=== PATIENT | male | born 1950 | race Caucasian/White ===

== ENCOUNTER → 2016-09-08 | Outpatient (CLI) | payer OTHER ==
--- NOTE | 2016-09-08 09:27 | RAD ---
EXAM DESCRIPTION: XR KNEE 4 OR MORE VIEWS CLINICAL HISTORY: 65 y/o ,M, PAIN IN LEFT KNEE COMPARISON: None. IMPRESSION: Moderate joint effusion. Mild joint space loss of the medial and lateral compartments of the left knee. No definitive fracture on today's radiographs. No osseous lesion noted. Electronically signed by: Fco Ogden MD 09/08/2016 09:25
--- NOTE | 2016-09-08 09:28 | RAD ---
EXAM DESCRIPTION: Pelvis series. CLINICAL HISTORY: Pelvic pain. COMPARISON: None. TECHNIQUE: One view was submitted for evaluation. FINDINGS: Bilateral joint space loss seen within the hips. Degenerative change of the pubic symphysis noted. Degenerative change the left sacroiliac joint. No fracture, dislocation, or radiopaque foreign body is seen. Pelvic ring appears intact. Soft tissues are unremarkable. IMPRESSION: Symmetrical joint space loss noted within bilateral hips along with degenerative change of the left sacroiliac joint and pubic symphysis. Electronically signed by: Fco Ogden MD 09/08/2016 09:26
== END ==
LOC: RAD 07:59
PROVIDERS: ATTEND Orthopaedic Surgery
DX: M25.562 Pain in left knee (principal); M25.862 Other specified joint disorders, left knee; M25.462 Effusion, left knee; M25.552 Pain in left hip; M25.852 Other specified joint disorders, left hip; M25.851 Other specified joint disorders, right hip

== ENCOUNTER → 2017-04-02 | Outpatient (CLI) | payer OTHER | END | disposition home or self-care (01) | LOC: GMAB 13:17 | PROVIDERS: ATTEND Family Medicine | DX: M79.1 Myalgia (principal) ==

== ENCOUNTER → 2017-08-09 | Outpatient (CLI) | payer OTHER ==
--- NOTE | 2017-08-10 09:01 | MRI ---
Study: MRI of the Left Elbow. Indication: TEAR OF MENISCUS Technique: Multiplanar, multi sequence MRI of the left elbow was obtained without intravenous contrast. Comparison: None. Findings: Pronounced mucoid degeneration and intrasubstance cystic change ACL without acute tear. Mild degeneration PCL. Both the MCL and FCL are slightly thickened and lax with mild increased internal PD signal. In addition, there is mild thickening of the distal IT band. These findings can be seen in the setting of the osteoarthritic knee. No acute tear defect of the medial or lateral collateral structures. Complex multidirectional tearing posterior horn and body medial meniscus with 5 mm extrusion of the body. Extensive grade 4 chondral loss throughout the majority medial compartment with cortical remodeling and multifocal subchondral marrow edema/cystic change. The changes are most pronounced in the medial tibial plateau with the edema/cystic change extending into the central tibial metaphysis. Mild degenerative signal lateral meniscus without tear. There is grade 2 chondral thinning throughout the lateral compartment but with subtle grade 4 chondrosis and subchondral marrow change posteromedial weightbearing margin of the lateral tibial plateau. Patellofemoral extensor mechanism intact. Patella normally located. Grade 2-3 chondral surface irregularity of the patellar apex and more pronounced grade 4 chondral loss and subchondral marrow change of the inferior margin lateral femoral trochlea. Moderate size knee effusion with scattered synovitis debris. Small multiloculated Gan cyst. No acute fracture. Impression: Pronounced mucoid degeneration ACL with less pronounced degeneration PCL. Changes of the capsular structures which can be seen in the setting osteoarthritis. Maceration medial meniscus as above. Degenerative signal changes lateral meniscus without tear. Tricompartmental chondrosis most pronounced at the medial compartment where there is extensive grade 4 chondral loss and subchondral marrow changes. Note, the cystic change and marrow edema of the medial tibial plateau extends into the medial tibial metaphysis without well-defined mass lesion. Moderate size knee effusion. Electronically signed by: Tony Bridges MD 08/10/2017 9:00 AM [employer]VERTISING COLUMNIST
== END | disposition home or self-care (01) ==
LOC: MRI 11:18
PROVIDERS: ATTEND Orthopaedic Surgery
DX: S83.207D Unspecified tear of unspecified meniscus, current injury, left knee, subsequent encounter (principal)

== ENCOUNTER → 2018-04-14 | Outpatient (CLI) | payer MEDICARE | LOC: GMAE 12:25 | PROVIDERS: ATTEND Family Medicine | DX: M79.1 Myalgia (principal); E29.1 Testicular hypofunction; I10 Essential (primary) hypertension; Z12.5 Encounter for screening for malignant neoplasm of prostate; Z11.59 Encounter for screening for other viral diseases | CPT/HCPCS: 84403; 84443; 86140; G0103 ==

== ENCOUNTER → 2019-01-24 | Outpatient (CLI) | payer MEDICARE ==
--- NOTE | 2019-01-24 17:03 | MRI ---
EXAM DESCRIPTION: Lumbar Spine w/o Contrast CLINICAL HISTORY: RADICULOPATHY COMPARISON: None. TECHNIQUE: Multiplanar, multisequence MRI of the lumbar spine was performed without contrast. FINDINGS: Lumbar vertebral body heights are maintained. A 2 mm anterolisthesis of L5 on S1 is seen. No pars defect. Mild Modic type I endplate signal changes anteriorly at T12-L1 is seen. Increased lumbar lordosis is noted. Desiccation of the disc spaces throughout the lumbar spine with anterior disc bulging and hypertrophic marginal endplate osteophytes at every level. Patchy Modic type II endplate signal changes are seen at every level. Marrow edema is seen in the right L5 and to a lesser degree L4 pedicle extending to the periarticular osseous structures of the right L4-5 facet joint. Increased T2 signal in the soft tissue around the right facet joint is seen. Mild marrow edema in the left L4-5 facet joint and pedicles is also seen. Conus medullaris terminates at T12-L1 and is unremarkable. Visualized intra-abdominal and retroperitoneal structures show no acute findings. The right kidney is not identified. T10-L1: Mild to moderate disc space narrowing with mild posterior disc osteophytic ridging. No spinal canal stenosis. Moderate right greater than left foraminal encroachment T11-12 is seen. L1-2 Mild disc space narrowing. Mild posterior disc osteophytic ridging. Mild bilateral foraminal encroachment is seen. Probable atypical osseous hemangioma in the left posterior element of L1 measuring 8 mm on sagittal image 4. L2-3 Mild diffuse disc space narrowing and 2 to 3 mm broad-based disc bulge with mild facet hypertrophic and degenerative changes results in mild spinal canal stenosis. Moderate right and moderate to severe left foraminal encroachment contacting the exiting L2 nerve root in the neural foramen left greater than right is seen. L3-4 Moderate diffuse disc space narrowing. Mild facet hypertrophic and degenerative changes. No spinal canal stenosis. Moderate right greater than left foraminal encroachment is seen with right far lateral disc osteophytic ridging encroaching on the extraforaminal right L3 nerve root. L4-5 Moderate diffuse disc space narrowing and to 3 mm broad-based annular disc bulge mildly flattens ventral surface of the thecal sac. Severe left and moderate right facet hypertrophic and degenerative changes are seen. No spinal canal stenosis. Severe left and moderate right foraminal encroachment is seen with loss of normal fat signal from around the exiting left L4 nerve root. L5-S1 Moderate to severe disc space narrowing and vacuum disc. Moderate bilateral facet hypertrophic and degenerative changes are seen. Mild spinal canal stenosis. Severe left greater than right foraminal encroachment impinging on the exiting L5 nerve roots. Uncovering of the disc from anterolisthesis. IMPRESSION: Moderate to severe disc degenerative changes and [id number] facet arthropathy of the lumbar spine. Degenerative grade 1 anterolisthesis at L5-S1 with severe left greater than right foraminal encroachment. Severe left and moderate right foraminal encroachment at L4-5 is seen. Stress reactive marrow edema versus acute inflammation of the pedicle to facet joints is seen right greater than left at L4-5 including soft tissue inflammation surrounding right facet. Electronically signed by: Luciano García MD 01/24/2019 5:01 PM CDT
== END ==
LOC: MRI 10:42
PROVIDERS: ATTEND Family Medicine
DX: M51.16 Intervertebral disc disorders with radiculopathy, lumbar region (principal); M47.26 Other spondylosis with radiculopathy, lumbar region; M43.17 Spondylolisthesis, lumbosacral region

== ENCOUNTER → 2019-11-13 | Outpatient (CLI) | payer MEDICARE | LOC: GMAE 10:23 | PROVIDERS: ATTEND Family Medicine | DX: Z12.5 Encounter for screening for malignant neoplasm of prostate (principal); I10 Essential (primary) hypertension; E78.2 Mixed hyperlipidemia | CPT/HCPCS: 84443; G0103 ==

== ENCOUNTER → 2019-12-21 | Outpatient (CLI) | payer MEDICARE | LOC: LAB.O 15:04 | PROVIDERS: ATTEND Orthopaedic Surgery | DX: Z01.818 Encounter for other preprocedural examination (principal) ==

== ENCOUNTER 2020-02-06 05:32 | Inpatient (IN) | payer MEDICARE ==
[2020-02-06] MEDS ORDERED: SODIUM CHLORIDE 0.9% 100ML 100 ML IVPB ONE (06:40)
[2020-02-06] MEDS ORDERED: ceFAZolin SODIUM 1 GM VIAL ONE (06:40)
[2020-02-06] MEDS ORDERED: LACTATED RINGERS 1,000 ML ONE ×2 (06:40→11:10)
[2020-02-06] MEDS ORDERED: SODIUM CHLORIDE 0.9% 250ML 250 ML ONE (06:40)
[2020-02-06] MEDS ORDERED: SODIUM CHL 0.9% 100ML MINI-BAG 100 ML IVPB ONE (06:40)
[2020-02-06] MEDS ORDERED: VANCOMYCIN HCL INJ 1,000 MG VIAL IVPB ONE (06:41)
[2020-02-06] MEDS ORDERED: TRANEXAMIC ACID 1,000 MG/10 ML VIAL ONE (06:41)
[2020-02-06] MEDS ORDERED: HYDROmorphone HCL INJ 2 MG/ML VIAL ONE (07:13)
[2020-02-06] MEDS ORDERED: MIDAZOLAM INJ 5 MG/5 ML VIAL ONE (07:13)
[2020-02-06] MEDS ORDERED: KETAMINE HCL 100 MG/ML VIAL ONE (07:13)
[2020-02-06] MEDS ORDERED: ACETAMINOPHEN IV 1000MG 100 ML ONE (07:13)
[2020-02-06] MEDS ORDERED: FAMOTIDINE INJ 10 MG/ML VIAL IV ONE (07:14)
[2020-02-06] MEDS: LACTATED RINGERS 1,000 ML IVS ONE ×2 (07:45→11:15)
[2020-02-06] MEDS: ceFAZolin SODIUM 1 GM VIAL ONE ×3 (08:43→10:05)
[2020-02-06] MEDS: BUPIVACAINE 0.5% 30 ML VIAL INJ ONE ×2 (08:43→09:55)
[2020-02-06] MEDS: BUPIVACAINE LIPOSOME 13.3 MG/ML VIAL INJ ONE ×2 (08:44→09:55)
[2020-02-06] MEDS: VANCOMYCIN HCL INJ 1,000 MG VIAL IVPB ONE ×2 (08:44→10:05)
[2020-02-06] MEDS ORDERED: DEXAMETHASONE INJ 10 MG/ML VIAL IV ONE (10:00)
[2020-02-06] MEDS ORDERED: EPINEPHrine HCL AMP 1 MG/ML AMP IVPB ONE (10:00)
[2020-02-06] MEDS ORDERED: SODIUM CHLORIDE 0.9% 50 ML VIAL INJ ONE (10:00)
[2020-02-06] MEDS ORDERED: ePHEDrine SULF 50 MG/ML IV ONE (10:00)
[2020-02-06] MEDS ORDERED: PROPOFOL 200 MG/20 ML VIAL IV ONE (10:00)
[2020-02-06] MEDS ORDERED: MAGNESIUM SULFATE INJ 1 GM/2 ML VIAL IVPB ONE (10:00)
[2020-02-06] MEDS ORDERED: LIDOCAINE 1% 10 ML VIAL INJ ONE (10:00)
[2020-02-06] MEDS ORDERED: LACTATED RINGERS 50 ML IVS ONE (10:34)
[2020-02-06] MEDS ORDERED: traMADol HCL 50 MG TAB PO PRN (11:00)
[2020-02-06] MEDS ORDERED: HYDROcodone 10MG/APAP 325MG 1 EA TAB PO PRN (11:00)
[2020-02-06] MEDS ORDERED: IV SET AND CAP CHANGE INJ INJ SCH (11:00)
[2020-02-06] MEDS ORDERED: TEMAZEPAM 15 MG CAP PO PRN (11:00)
[2020-02-06] MEDS ORDERED: ACETAMINOPHEN 500 MG TAB PO PRN (11:00)
[2020-02-06] MEDS ORDERED: MORPHINE SULFATE INJ 10 MG/ML VIAL IV PRN (11:00)
[2020-02-06] MEDS ORDERED: NALOXONE HCL INJ 0.4 MG/ML VIAL IV PRN (11:00)
[2020-02-06] MEDS ORDERED: BISACODYL SUPPOSITORY 10 MG PR PRN (11:00)
[2020-02-06] MEDS ORDERED: ZOLPIDEM TARTRATE 5 MG TAB PO PRN (11:00)
[2020-02-06] MEDS ORDERED: DEX 5% W/NACL 0.45% 1000ML 1,000 ML IVS PRN (11:00)
[2020-02-06] MEDS ORDERED: ONDANSETRON INJ 4 MG/2 ML VIAL IV PRN (11:00)
[2020-02-06] MEDS ORDERED: ACETAMINOPHEN 325 MG TAB PO PRN (11:00)
[2020-02-06] MEDS ORDERED: CYCLOBENZAPRINE HCL 10 MG TAB PO PRN (11:00)
[2020-02-06] MEDS ORDERED: SODIUM CHLORIDE 0.9% (FLUSH) 10 ML SYG IV PRN (11:00)
[2020-02-06] MEDS ORDERED: MAGNESIUM HYDROXIDE 30 ML UD PO PRN (11:00)
[2020-02-06] MEDS ORDERED: BENZOCAINE-MENTH LOZ (CEPACOL) 1 EA LOZ MT PRN (11:00)
[2020-02-06] MEDS ORDERED: MORPHINE PCA 1 MG/ML 100 ML BAG IVPB SCH (11:00)
[2020-02-06] MEDS ORDERED: MORPHINE SULFATE INJ 10 MG/ML VIAL IM PRN (11:00)
[2020-02-06] MEDS ORDERED: TRANEXAMIC ACID INJ 1,000 MG in SODIUM CHLORIDE 0.9% 100ML 100 ML IVPB ONE (11:00)
[2020-02-06] MEDS ORDERED: PROMETHAZINE HCL INJ 25 MG in SODIUM CHLORIDE 0.9% 50ML 50 ML IVPB PRN (11:00)
[2020-02-06] MEDS ORDERED: ALUMINUM & MAGNESIUM HYDROXIDE 30 ML UD PO PRN (11:00)
[2020-02-06] MEDS ORDERED: PROMETHAZINE HCL INJ 12.5 MG in SODIUM CHLORIDE 0.9% 50ML 50 ML IVPB PRN (11:00)
[2020-02-06] MEDS ORDERED: CADD ADMIN SET 1 EA PKG INJ ONE (11:14)
[2020-02-06] MEDS ORDERED: MORPHINE PCA 1 MG/ML 100 ML BAG IVPB ONE (11:20)
[2020-02-06] MEDS ORDERED: [UNRECOGNIZED DRUG - OTHER] PO PRN (12:41)
[2020-02-06] MEDS ORDERED: hydrOXYzine HCl 25 MG TAB PO PRN (13:03)
[2020-02-06] MEDS: ceFAZolin SODIUM 2 GM in SODIUM CHLORIDE 0.9% 100ML 100 ML IVPB SCH ×2 (15:25→23:47)
[2020-02-06] MEDS: CELECOXIB 100 MG CAP PO SCH (16:49)
--- NOTE | 2020-02-06 17:15 | CONS ---
SUPERVISING PHYSICIAN: Juan Diego Barth MD REASON FOR CONSULTATION: Medical management. HISTORY OF PRESENT ILLNESS: This is a 69-year-old male patient who had a long history of osteoarthritis of the left knee. Today, he underwent left total knee arthroplasty with no intraoperative complications. He returns to the Medical/Surgical Unit in stable condition. He is not complaining of any pain right now, but he is still very drowsy from surgery. PAST MEDICAL HISTORY: 1. Hypertension. 2. Obstructive sleep apnea. 3. Rheumatoid arthritis. 4. Hyperlipidemia. PAST SURGICAL HISTORY: 1. Appendectomy. 2. Nephrectomy. 3. Eye surgery. 4. L4-L5 back surgery. MEDICATIONS: 1. Tylenol Arthritis 650 mg p.o. b.i.d. 2. Vitamin C 500 p.o. daily. 3. Vitamin B Complex with biotin and folic acid, 1 tablet daily. 4. Vitamin D 1000 units p.o. daily. 5. Folic acid 1 mg p.o. daily. 6. Leflunomide 20 mg p.o. daily. 7. Lisinopril/HCTZ 20/25 mg p.o. daily. 8. Actemra 800 mg IV monthly. ALLERGIES: NO KNOWN DRUG ALLERGIES. FAMILY HISTORY: His father had coronary artery bypass graft and at age 80 with Alzheimer's. SOCIAL HISTORY: The patient quit smoking in 2016. He vaped for 3 years, but quit vaping in April of 2019. He does use smokeless tobacco. No significant alcohol or drug use. He is and has 3 children. REVIEW OF SYSTEMS: Cannot be fully completed due to the patient being drowsy. He does not have any complaints at this time. PHYSICAL EXAMINATION: VITAL SIGNS: Blood pressure 109/67, heart rate 62, respiratory rate 14, temperature 97.9, oxygen saturation 93%. GENERAL: Mr. Jiang is a 69-year-old male patient who is in no active distress currently. NEUROLOGIC: The patient is a little drowsy, but awakens and follows commands. LUNGS: Clear to auscultation bilaterally. CARDIOVASCULAR: Regular rate and rhythm. Normal S1, S2. ABDOMEN: Soft. Positive bowel sounds. GENITOURINARY: Deferred. EXTREMITIES: Lower extremities with no edema. Pulses 2+. Capillary refill is less than 2 seconds. Left leg is wrapped with an Aristides with an ice pack in place. ASSESSMENT: 1. Left knee osteoarthritis status post left total knee arthroplasty. 2. History of hypertension. 3. History of obstructive sleep apnea. 4. Hyperlipidemia. 5. History of rheumatoid arthritis. PLAN: We will restart his home medications and monitor his progress with physical therapy and pain control while he is on the Medical/Surgical Unit. Anticoagulation will start 12 hours after his surgery with Lovenox q.12h. Pain medications have been ordered as well. I will recheck his hemoglobin tomorrow and get a baseline chemistry as well. #[id number] [facility]
[2020-02-06] MEDS: VANCOMYCIN HCL INJ 1,000 MG in SODIUM CHLORIDE 0.9% 250ML 250 ML IVPB SCH (18:01)
[2020-02-06] MEDS: DOCUSATE CALCIUM 240 MG CAP PO SCH (22:14)
[2020-02-06] MEDS: ENOXAPARIN SODIUM 30 MG/0.3 ML SYG SUBCU SCH (23:47)
[2020-02-07] MEDS: VANCOMYCIN HCL INJ 1,000 MG in SODIUM CHLORIDE 0.9% 250ML 250 ML IVPB SCH (06:12)
[2020-02-07] MEDS ORDERED: diphenhydrAMINE HCL 50 MG/ML VIAL ONE (08:18)
[2020-02-07] MEDS ORDERED: HYDROmorphone HCL INJ 2 MG/ML VIAL IV PRN (08:22)
[2020-02-07] MEDS ORDERED: diphenhydrAMINE HCL 50 MG/ML VIAL IV PRN (08:53)
[2020-02-07] MEDS: LISINOPRIL 10 MG TAB PO SCH (08:55)
[2020-02-07] MEDS: CHOLECALCIFEROL 2,000 IU TAB PO SCH (08:55)
[2020-02-07] MEDS: FOLIC ACID 1 MG TAB PO SCH (08:55)
[2020-02-07] MEDS: CELECOXIB 100 MG CAP PO SCH ×2 (08:55→19:31)
[2020-02-07] MEDS: HYDROcodone 5MG/APAP 325MG 1 EA TAB PO PRN ×2 (08:56→21:47)
[2020-02-07] MEDS: hydroCHLOROthiazide 25 MG TAB PO SCH (08:57)
[2020-02-07] MEDS: B COMPLEX 1 EA TAB PO SCH (08:57)
[2020-02-07] MEDS: MAGNESIUM OXIDE 400 MG TAB PO SCH (08:59)
[2020-02-07] MEDS: ASCORBIC ACID 500 MG TAB PO SCH (08:59)
[2020-02-07] MEDS: ceFAZolin SODIUM 2 GM in SODIUM CHLORIDE 0.9% 100ML 100 ML IVPB SCH (09:00)
[2020-02-07] MEDS ORDERED: ceFAZolin SODIUM 1 GM VIAL ONE (10:41)
[2020-02-07] MEDS ORDERED: SODIUM CHLORIDE 0.9% 100ML 100 ML IVPB ONE (10:41)
--- NOTE | 2020-02-07 11:21 | PN ---
SUPERVISING PHYSICIAN: Juan Diego Barth MD DATE: 02/07/20 SUBJECTIVE: The patient does not complain of any significant pain. He is walking in the hallways with physical therapy. Physical Therapy actually reports that he can probably go home with outpatient rehab tomorrow. OBJECTIVE: VITAL SIGNS: Blood pressure 115/58, heart rate 68, respiratory rate 16, temperature 98.4, oxygen saturation 97%. GENERAL: Mr. Jiang is a 69-year-old male patient NEUROLOGIC: Alert and oriented. LUNGS: Clear to auscultation bilaterally. CARDIOVASCULAR: Regular rate and rhythm. Normal S1, S2. ABDOMEN: Soft. Positive bowel sounds. EXTREMITIES: Left lower extremity with knee wrapped in an Aristides. Peripheral pulses 2+. Capillary refill is less than 2 seconds. LABORATORY: White count 5.5, hemoglobin 10.6, platelet count 114. Chemistry is pretty much unremarkable. ASSESSMENT: 1. Left knee osteoarthritis status post left total knee arthroplasty, postoperative day #1. 2. History of hypertension. 3. History of obstructive sleep apnea. 4. History of hyperlipidemia. 5. History of rheumatoid arthritis. PLAN: Continue physical therapy and pain control measures. If he indeed does go home tomorrow, he will need to be placed on p.o. anticoagulation and I will relay that to the oncoming hospitalist tomorrow. #[id number] [facility]
[2020-02-07] MEDS: ENOXAPARIN SODIUM 30 MG/0.3 ML SYG SUBCU SCH ×2 (11:29→22:53)
[2020-02-07] MEDS: LEFLUNOMIDE 20 MG PO SCH (11:31)
--- NOTE | 2020-02-07 13:09 | RAD ---
EXAM DESCRIPTION: Knee,Left 1 or 2 Views CLINICAL HISTORY: 69 years Male, TKA TECHNIQUE: 2 views of the left knee were performed. COMPARISON: 10/12/2019 FINDINGS: The visualized bones appear well mineralized. Intact left total knee arthroplasty with expected postsurgical changes in the surrounding soft tissues. IMPRESSION: Intact left total knee arthroplasty with expected postsurgical changes in the surrounding soft tissues. Electronically signed by: Quiana Razo MD 02/07/2020 1:07 PM CDT
[2020-02-07] MEDS: DOCUSATE CALCIUM 240 MG CAP PO SCH (21:08)
[2020-02-07] MEDS ORDERED: amLODIPine BESYLATE 5 MG TAB PO ONE (22:47)
[2020-02-08] MEDS: CELECOXIB 100 MG CAP PO SCH (07:37)
[2020-02-08 07:52] VITALS: O2SAT 98
--- NOTE | 2020-02-08 08:24 | OP ---
DATE OF PROCEDURE: 02/06/20 PREOPERATIVE DIAGNOSIS: 1. Left knee osteoarthritis. POSTOPERATIVE DIAGNOSIS: 1. Left knee osteoarthritis. PROCEDURE: 1. Total knee arthroplasty. SURGEON: Phil Arzate MD. FOOD SERVER: Mukund Heard CST, SA-C. ANESTHESIA: General anesthesia. COMPLICATIONS: None. FINDINGS: Severe arthritis. INDICATION: Mr. Jiang has a history of severe pain associated with arthritis of the knee. He has limitations in his activity secondary to that. Because of his ongoing discomfort and activity limitations, he has requested operative intervention. After discussing the risks, benefits and alternatives to that, the patient has given informed consent for total knee arthroplasty. PROCEDURE: The patient was brought to the Operating Room and placed in supine position. General anesthesia was induced and the patient's leg was sterilely prepped and draped. Following prepping and draping, the distal femur was exposed and using an intramedullary guide, the distal femoral cut was made. The appropriate sized cutting block was measured, pinned into place, and the anterior, posterior, and chamfer cuts were made. The ACL was transected and the tibia was subluxed. Both the medial and lateral menisci were removed. An intramedullary guide was used to make the proximal tibial cut. The appropriate sized base plate was placed and a trial polyethylene was placed. The trial femur was placed, the knee was reduced, and the knee was taken through a range of motion. The knee was stable in anterior, posterior, varus and valgus stress. The patella tracked anatomically without evidence of subluxation or dislocation. After trialing, the trial components were removed and the bony surfaces were thoroughly irrigated with saline. Following irrigation, the surfaces were dried and the final components were cemented into place. The excess cement was removed and the remaining cement was allowed to cure. The knee was again taken through a range of motion to confirm stability. The wound was then irrigated with saline and closure was performed using PDS to approximate the arthrotomy followed by closure of the subcutaneous tissues with a combination of running and interrupted Monocryl sutures. Sterile dressing was placed. The patient was awoken from anesthesia and taken to Recovery. COMPONENTS: Maria G Triathlon knee, size 4 femur, size 4 tibia, 11 mm insert. POSTOPERATIVE PLAN: The patient will be weight-bearing as tolerated on postoperative day 1. #[id number] [facility]
--- NOTE | 2020-02-08 08:25 | PN ---
DATE: 02/07/20 SUBJECTIVE: Mr. Jiang is doing well and has good pain control. OBJECTIVE: Afebrile . Vital signs stable. Dressing is clean, dry and intact. ASSESSMENT: Status post total knee arthroplasty. PLAN: The plan is to begin weightbearing as tolerated today. #[id number] [facility]
--- NOTE | 2020-02-08 08:26 | PN ---
DATE: 02/08/20 SUBJECTIVE: Mr. Jiang is doing very well. OBJECTIVE: Afebrile . Vital signs stable. The wound is clean. There are no signs or symptoms of infection. ASSESSMENT: Status post total knee arthroplasty. PLAN: The plan is for discharge. He will continue with his weightbearing as tolerated today. #[id number] [facility]
[2020-02-08] MEDS ORDERED: SODIUM CHLORIDE 0.9% (FLUSH) 10 ML SYG IV SCH (09:00)
[2020-02-08] MEDS: B COMPLEX 1 EA TAB PO SCH (09:32)
[2020-02-08] MEDS: MAGNESIUM OXIDE 400 MG TAB PO SCH (09:32)
[2020-02-08] MEDS: hydroCHLOROthiazide 25 MG TAB PO SCH (09:32)
[2020-02-08] MEDS: CHOLECALCIFEROL 2,000 IU TAB PO SCH (09:32)
[2020-02-08] MEDS: ASCORBIC ACID 500 MG TAB PO SCH (09:32)
[2020-02-08] MEDS: LISINOPRIL 10 MG TAB PO SCH (09:32)
[2020-02-08] MEDS: FOLIC ACID 1 MG TAB PO SCH (09:32)
[2020-02-08] MEDS: HYDROcodone 5MG/APAP 325MG 1 EA TAB PO PRN (09:32)
[2020-02-08] MEDS: LEFLUNOMIDE 20 MG PO SCH (09:33)
[2020-02-08 10:45] VITALS: BP 169/77; TEMP 97.9
[2020-02-09] MEDS ORDERED: BISACODYL SUPPOSITORY 10 MG PR ONE (21:00)
[2020-02-09] MEDS ORDERED: MAGNESIUM HYDROXIDE 30 ML UD PO ONE (21:00)
--- NOTE | 2020-02-27 13:08 | DS ---
SUPERVISING PHYSICIAN: Juan Diego Barth MD DISCHARGE DIAGNOSIS: 1. Left knee osteoarthritis status post left total knee arthroplasty, postoperative day #2. 2. Hypertension. 3. Obstructive sleep apnea. 4. Hyperlipidemia. 5. Rheumatoid arthritis. HISTORY OF PRESENT ILLNESS: This is a 69-year-old male patient who has history of osteoarthritis of the left knee. He was admitted to the hospital on the day of his surgery and as he had requested Dr. Phil Arzate, orthopedic surgeon, for operative intervention. He had no problems intraoperatively and was admitted to the Medical/Surgical Floor in stable condition. HOSPITAL COURSE: His home medications were restarted and his physical therapy was also started with pain control. His labs remained stable. There were no complications with his physical therapy. He will be discharged home today with outpatient physical therapy. LABORATORY: Hemoglobin 10.6, hematocrit 32.8. Electrolytes were basically within normal limits. Urinalysis was unremarkable. UDS on admission was negative. DISCHARGE PLAN: The patient will be discharged home in stable condition. He is to resume his previous diet and his activity will be as per physical therapy. He has a followup appointment with Dr. Arzate and he is to follow Dr. Arzate's postoperative instructions. In addition to his routine medications, he will also be on Xarelto for a total of 12 days of anticoagulation. He is to return to the hospital or followup Dr. Arzate for any problems or complications. MEDICATIONS: 1. Lisinopril/hydrochlorothiazide. 2. Leflunomide. 3. Folic acid. 4. B-complex vitamins. 5. Vitamin D. 6. Vitamin C. 7. Actemra. 8. Xarelto. #[id number] [facility]
== END 2020-02-08 11:45 | disposition home or self-care (01) | DRG 470 ==
LOC: AMB 05:32 → MS 11:25
PROVIDERS: ADMIT Orthopaedic Surgery; ATTEND Nurse Practitioner Acute Care
PROC: 0SRD0J9 Replacement of Left Knee Joint with Synthetic Substitute, Cemented, Open Approach (ICD-10-PCS; principal; 2020-02-06 07:47)
DX: M17.12 Unilateral primary osteoarthritis, left knee (principal); I10 Essential (primary) hypertension; H91.90 Unspecified hearing loss, unspecified ear; G47.33 Obstructive sleep apnea (adult) (pediatric); M06.9 Rheumatoid arthritis, unspecified; E78.5 Hyperlipidemia, unspecified; Z90.5 Acquired absence of kidney; Z87.891 Personal history of nicotine dependence; Z79.899 Other long term (current) drug therapy